=== PATIENT | male | born 1990 | race Caucasian/White ===

== ENCOUNTER 2016-10-04 01:22 | Emergency (ER) | payer SELFPAY ==
[~2016-10-04] VITALS: Ht 167.6 cm; Wt 65.8 kg
[2016-10-04 01:35] VITALS: BP_SYST 136
--- NOTE | 2016-10-04 01:35 | NUR ---
PT TO ER CHAIR WITH [employer] OFFICERS
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
--- NOTE | 2016-10-04 01:50 | NUR ---
ED MD Addison at bedside for medical evaluation.
[2016-10-04] MEDS ORDERED: DIPH-TET-PERTUS Vaccine 0.5 ML VIAL (ADACEL) I.M. ONE ×2 (02:15→02:27)
--- NOTE | 2016-10-04 02:15 | NUR ---
Scanner Error. Name, , Allergies and medication verified prior to adminstration.
[2016-10-04 02:21] VITALS: BP_SYST 132
--- NOTE | 2016-10-04 02:21 | NUR ---
Patient given written and verbal discharge instructions and verbalizes understanding. ER MD discussed with patient the results and treatment provided. Patient in stable condition. ID arm band removed. No Rx given. Patient educated on pain management and to follow up with PMD in 2-3 days. Pain Scale 0/10 Opportunity for questions provided and answered.
== END 2016-10-04 02:21 ==
LOC: SED 01:22
DX: Z02.89 Encounter for other administrative examinations (principal); S50.811A Abrasion of right forearm, initial encounter; V28.4XXA Motorcycle driver injured in noncollision transport accident in traffic accident, initial encounter; Y93.89 Activity, other specified; Y92.410 Unspecified street and highway as the place of occurrence of the external cause; Y99.8 Other external cause status
CPT/HCPCS: 90715; 99283